=== PATIENT | female | born 1970 | race Caucasian/White ===

== ENCOUNTER 2024-07-24 10:33 | Emergency (ER) | payer OTHER ==
[~2024-07-24] VITALS: Ht 172.7 cm; Wt 90.7 kg
[2024-07-24 10:33] VITALS: BP 154/92; PULSE 87; RESP 18; TEMP 99.4; O2SAT 94
[2024-07-24] MEDS ORDERED: TORADOL ONE (10:49)
[2024-07-24] MEDS: TORADOL IM STA (10:54)
[2024-07-24 11:21] VITALS: BP 158/82; PULSE 74; RESP 18; TEMP 99.4; O2SAT 94
[2024-07-24 11:54] VITALS: BP 172/82; PULSE 74; RESP 18; TEMP 99.4; O2SAT 94
[2024-07-24] MEDS ORDERED: KETO10TA PO (11:56)
[2024-07-24] MEDS ORDERED: METH-621 PO (11:56)
== END 2024-07-24 11:57 | disposition home or self-care (01) ==
LOC: ER 10:33
DX: S82.65XA Nondisplaced fracture of lateral malleolus of left fibula, initial encounter for closed fracture (principal); Z87.891 Personal history of nicotine dependence; Z88.0 Allergy status to penicillin; X58.XXXA Exposure to other specified factors, initial encounter; Y93.89 Activity, other specified; Y92.89 Other specified places as the place of occurrence of the external cause; Y99.8 Other external cause status
CPT/HCPCS: 99283; 96372; 73610; J1885